=== PATIENT | male | born 1980 | race Caucasian/White ===

== ENCOUNTER 2020-10-16 10:39 | Inpatient (IN) | payer MEDICAID, SELFPAY ==
[~2020-10-16] VITALS: Ht 175.3 cm; Wt 146.6 kg
[2020-10-16 11:04] VITALS: BP 133/80
--- NOTE | 2020-10-16 11:11 | NUR ---
PT AMBULATED TO BED 1
--- NOTE | 2020-10-16 11:11 | NUR ---
PT MOVED TO BED 6
[2020-10-16] MEDS ORDERED: NACL 0.9% 1,000 ML IV SCH (11:20)
--- NOTE | 2020-10-16 11:36 | NUR ---
PSYCH COORDINATOR AT BEDSIDE
--- NOTE | 2020-10-16 11:40 | NUR ---
40/M PRESENTS TO ED WITH C/O ABSCESS TO GROIN AREA X1 WEEK. PATIENT STATES FOR TWO DAYS ABSCESS HAS BEGAN TO DRAIN, REPORTS 9/10 SHARP PAIN THAT WORSENS WITH MOVEMENT. DENIES TAKING ANYTHING AT HOME, STATES HE HAS APPLIED "ANTIBIOTIC OINTMENT." PATIENT ALSO HAS HX OF DM, STATES HE HAS NOT CHECKED SUGAR IN "MONTHS" STATING NO ACCESS TO ACCUCHECK DEVICE, ACCUCHECK UPON ARRIVAL TOO HIGH TO READ, DR. PARTIDA MADE AWARE. PATIENT NOT PRESENTING WITH HYPERGLYCEMIA SYMPTOMS, DENIES CHEST PAIN, SOB, FEVER OR CHILLS. DENIES DIZZINESS, EXCESSIVE THIRST OR URINATION.
[2020-10-16 12:08] LABS: BASOPHILS # (AUTO) 0.1 K/uL (0.00-0.22); EOSINOPHILS # (AUTO) 0.3 K/uL (0-0.4); EOSINOPHILS % (AUTO) 2.8 % (0.0-4.0); HEMOGLOBIN 14.5 g/dL (12.0-18.0); LYMPHOCYTES # (AUTO) 1.9 K/uL (2.0-11.5); LYMPHOCYTES % (AUTO) 20.1 % (20.5-51.1); MEAN CORPUSCULAR HEMOGLOBIN 31 pg (27-31); MEAN CORPUSCULAR HGB CONC 35 g/dL (33-37); MEAN CORPUSCULAR VOLUME 89.3 fL (80-94); MONOCYTES # (AUTO) 0.7 K/uL (0.8-1.0); MONOCYTES % (AUTO) 7.2 % (1.7-9.3); NEUTROPHILS # (AUTO) 6.4 K/uL (1.8-7.7); NEUTROPHILS % (AUTO) 68.9 % (42.2-75.2); PLATELET COUNT (AUTO) 254 K/uL (140-450); RED CELL DISTRIBUTION WIDTH 13.8 % (11.6-13.7); WHITE BLOOD COUNT (AUTO) 9.2 K/uL (4.8-10.8)
[2020-10-16 12:21] LABS: ALBUMIN 2.9 g/dL (3.4-5.0); ANION GAP 10.6 (8-16); CARBON DIOXIDE 26.6 mmol/L (21-32); CREATININE 1.6 mg/dL (0.6-1.3); POTASSIUM 4.2 mmol/L (3.5-5.1); TOTAL BILIRUBIN 0.3 mg/dL (0.0-1.0)
[2020-10-16] MEDS ORDERED: INSULIN REGULAR, HUMAN 100 UNIT/ML VIAL IVP ONE (12:30)
[2020-10-16] MEDS ORDERED: cefTRIAXone 1,000 MG in DEXT 5% MINI-BAG PLUS 50 ML IV ONE (12:50)
[2020-10-16] MEDS ORDERED: cefTRIAXone 1,000 MG VIAL ONE (13:09)
[2020-10-16] MEDS ORDERED: ACETAMINOPHEN 325 MG TAB PO PRN (13:15)
[2020-10-16] MEDS ORDERED: INSULIN LISPRO SLIDING SCALE 100 UNITS/ML VIAL SUBQ PRN (13:15)
[2020-10-16] MEDS ORDERED: POTASSIUM CHLORIDE 10 MEQ TABER PO PRN (13:15)
[2020-10-16] MEDS ORDERED: ZOLPIDEM 5 MG TAB PO PRN (13:15)
[2020-10-16] MEDS ORDERED: DOCUSATE SODIUM 100 MG GELCAP PO PRN (13:15)
[2020-10-16] MEDS ORDERED: DEXTROSE 50% 50 ML SYR IVP PRN (13:15)
[2020-10-16] MEDS ORDERED: guaiFENesin DM 200/20 MG-10 ML 10 ML UDC PO PRN (13:15)
[2020-10-16] MEDS ORDERED: DEXT 5% /NACL 0.9% 1,000 ML IV SCH (13:15)
[2020-10-16] MEDS ORDERED: HYDROcodone/APAP 7.5/325 MG 1 TAB PO PRN (13:15)
[2020-10-16] MEDS ORDERED: ONDANSETRON 4 MG/2 ML VIAL IM/IVP PRN (13:15)
[2020-10-16] MEDS ORDERED: INSULIN LANTUS 100 UNITS/ML 10 ML VIAL SUBQ SCH (13:40)
[2020-10-16 13:53] LABS: PROTHROMBIN TIME 10.4 secs (10.8-13.4)
[2020-10-16 13:59] LABS: MAGNESIUM 1.5 mg/dL (1.8-2.4); PHOSPHORUS 4.2 mg/dL (2.5-4.9); THYROID STIMULATING HORMONE 1.7 uIU/mL (0.34-3.74)
--- NOTE | 2020-10-16 14:00 | NUR ---
BLOOD SUGAR RECHECKED, 525. DR. PARTIDA MADE AWARE.
--- NOTE | 2020-10-16 14:54 | NUR ---
TALKED TO MADE AWARE BS 460, SAID NO COVERAGE FOR NOW, JUST GIVE LANTUS ORDER
[2020-10-16] MEDS ORDERED: BLOOD GLUCOSE MONITORING 1 DEV DEV FS SCH (16:30)
--- NOTE | 2020-10-16 16:30 | NUR ---
PATIENT STATES UNABLE TO PROVIDE URINE AT THIS TIME.
--- NOTE | 2020-10-16 17:30 | NUR ---
BLOOD SUGAR RECHECKED 460
--- NOTE | 2020-10-16 17:43 | NUR ---
Patient will be admitted to care of Dr. Echeverria. Admited to Med/Surg. Will go to room 124A. Belongings list completed. Report to Surya.
--- NOTE | 2020-10-16 17:59 | NUR ---
PATIENT ROOM NUMBER CHANGED TO [id number]
[2020-10-16 18:02] VITALS: BP 125/81
[2020-10-16] MEDS ORDERED: LIDOCAINE MPF 1% 10 MG/ML VIAL INJ SCH (18:25)
--- NOTE | 2020-10-16 18:41 | NUR ---
DR. NAYLOR ROUNDING. REFUSED IND PROCEDURE. PATIENT STATED, WANTS TO GO HOME. DR. NAYLOR WILL DO PROCEDURE IN OUTPATIENT. DR. KOENIG PAGED.
--- NOTE | 2020-10-16 18:59 | NUR ---
DR. KOENIG CALLED BACK. WANTS PATIENT TO STAY OVERNIGHT. AWARE PATIENT WANTS TO LEAVE. PATIENT STATED GOING TO LEAVE AGAINST MEDICAL ADVICE. DR. KOENIG AWARE. PATIENT SIGNED PAPER AND IN CHART. IV REMOVED. WILL CONTINUE TO MONITOR.
--- NOTE | 2020-10-16 19:03 | NUR ---
PATIENT VERBALIZED UNDERSTANDING OF AMA. STATES HAS MEDICATION FOR HYPERGLYCEMIA AND WILL GET REFILLS. PATIENT ALSO STATED WILL DO PROCEDURE IN OUTPATIENT ON TUESDAY. PATIENT WALKED TO DOOR AND STATED WILL BE PICKED UP.
[2020-10-16 23:49] LABS: FREE T4 (FREE THYROXINE) 1.03 ng/dL (0.76-1.46)
[2020-10-17] MEDS ORDERED: PANTOPRAZOLE 40 MG TABEC PO SCH (09:00)
[2020-10-17 15:06] LABS: T4 (THYROXINE) 7.1 ug/dL (4.5-12.0)
--- NOTE | 2020-10-19 08:52 | NUR ---
LATE ENTRY-- ROCEPHIN D/C AT 1400.
== END 2020-10-16 19:15 | disposition left against medical advice (07) | DRG 501 ==
LOC: MED 10:39 → MMU 13:25 → MTU 17:52
PROVIDERS: ADMIT Family Medicine; ATTEND Family Medicine
DX: N49.2 Inflammatory disorders of scrotum (principal); N17.0 Acute kidney failure with tubular necrosis; E43 Unspecified severe protein-calorie malnutrition; E11.65 Type 2 diabetes mellitus with hyperglycemia; Z20.822 Contact with and (suspected) exposure to COVID-19; L02.214 Cutaneous abscess of groin; E66.01 Morbid (severe) obesity due to excess calories; E87.1 Hypo-osmolality and hyponatremia; I10 Essential (primary) hypertension; Z79.4 Long term (current) use of insulin; Z68.42 Body mass index [BMI] 45.0-49.9, adult
CPT/HCPCS: 36415; 71045; 80053; 82150; 82948; 83036; 83605; 83690; 83735; 83880; 84100; 84436; 84439; 84443; 84479; 84484; 85025; 85610; 85730; 87040; 87081; 96361; 96365; 96372; 96375; 99285; J0696; J1815; Q0092

== ENCOUNTER 2020-12-27 19:45 | Emergency (ER) | payer MEDICAID, OTHER, SELFPAY ==
[~2020-12-27] VITALS: Ht 175.3 cm; Wt 139.3 kg
[2020-12-27 20:09] VITALS: BP 162/93
--- NOTE | 2020-12-27 20:14 | NUR ---
PT BED #5 AMBULATORY
[2020-12-27] MEDS ORDERED: HYDROcodone/APAP 10/325 MG 1 TAB TAB PO ONE (20:25)
[2020-12-27] MEDS ORDERED: ONDANSETRON 4 MG ODT PO ONE (20:25)
[2020-12-27] MEDS ORDERED: LACTATED RINGERS 1,000 ML IV ONE ×2 (20:30)
[2020-12-27 21:02] LABS: BASOPHILS # (AUTO) 0.1 K/uL (0.00-0.22); BASOPHILS % (AUTO) 0.7 % (0.0-2.0); EOSINOPHILS # (AUTO) 0.1 K/uL (0-0.4); EOSINOPHILS % (AUTO) 0.7 % (0.0-4.0); HEMATOCRIT 37.1 % (36-52); HEMOGLOBIN 12.7 g/dL (12.0-18.0); LYMPHOCYTES # (AUTO) 1.3 K/uL (2.0-11.5); LYMPHOCYTES % (AUTO) 13.5 % (20.5-51.1); MEAN CORPUSCULAR HEMOGLOBIN 30 pg (27-31); MEAN CORPUSCULAR HGB CONC 34 g/dL (33-37); MEAN CORPUSCULAR VOLUME 88.1 fL (80-94); MONOCYTES # (AUTO) 0.7 K/uL (0.8-1.0); MONOCYTES % (AUTO) 7.7 % (1.7-9.3); NEUTROPHILS # (AUTO) 7.5 K/uL (1.8-7.7); NEUTROPHILS % (AUTO) 77.4 % (42.2-75.2); PLATELET COUNT (AUTO) 422 K/uL (140-450); RED BLOOD CELL COUNT(AUTO) 4.21 MIL/uL (4.20-6.10); RED CELL DISTRIBUTION WIDTH 13.4 % (11.6-13.7); WHITE BLOOD COUNT (AUTO) 9.7 K/uL (4.8-10.8)
--- NOTE | 2020-12-27 21:05 | NUR ---
PATIENT BIB SELF, STATES LEFT LEG ABSCESS IS CAUSING PAIN RATES 10. STATES HE HAS HAD ABCESS FOR MONTHS NOW AND GETS IT DRAINED WHEN IT CAUSES DISCOMFORT. DENIES ANY CHEST PAIN, SOB. HAS NAUSEA BUT NO VOMITING. PATIENT IN NO APPRARENT ACUTE DISTRESS. NO UNLABORED BREATHING NOTED. WILL CONTINUE TO MONITOR. PMH: DM, HTN,
[2020-12-27 21:16] LABS: ALBUMIN 2.2 g/dL (3.4-5.0); ANION GAP 12.5 (8-16); CARBON DIOXIDE 26.8 mmol/L (21-32); CREATININE 1.3 mg/dL (0.6-1.3); POTASSIUM 4.3 mmol/L (3.5-5.1); TOTAL BILIRUBIN 0.1 mg/dL (0.0-1.0)
[2020-12-27] MEDS ORDERED: LIDOCAINE 2% 1000 MG/50 ML VIAL INJ ONE ×2 (21:45→21:54)
[2020-12-27] MEDS ORDERED: HYDROmorphone PFS 2 MG/ML SYR IVP ONE (21:55)
--- NOTE | 2020-12-27 22:00 | NUR ---
PATIENT GIVEN DILAUDID PRIOR TO PROCEDURE. LR BOLUS RUNNING, 2 LITERS TOTAL. PATIENT IN STABLE CONDITION. NO ACUTE DISTRESS NOTED.
--- NOTE | 2020-12-27 22:15 | NUR ---
ED MD IN THE ROOM DOING DRAINAGE PROCEDURE FOR LEFT LEG ABSCESS. PATIENT IN STABLE CONDITION, VSS.
[2020-12-27] MEDS ORDERED: SULFAMETH/TRIMETH DS 800/160MG 1 TAB PO ONE (22:25)
[2020-12-27] MEDS ORDERED: SULF-59 PO (22:29)
[2020-12-27] MEDS ORDERED: BACITRACIN OINT 500 UNITS/GM PKT TP ONE (22:35)
[2020-12-27] MEDS ORDERED: BACO TP (22:35)
[2020-12-27] MEDS ORDERED: INSULIN REGULAR, HUMAN 100 UNIT/ML VIAL IVP ONE (22:55)
--- NOTE | 2020-12-27 23:10 | NUR ---
ACCUCHECK 488, 6 UNTIS HUMULIN R ADMINISTERED PER ED MD ORDERS. PATIENT IN STABLE CONDITION. NO SIGNS OF ACUTE DISTRESS. WILL CONTINUE TO MONITOR.
[2020-12-27 23:40] VITALS: BP 135/85
--- NOTE | 2020-12-27 23:40 | NUR ---
Patient discharged with v/s stable. Written and verbal after care instructions given and explained. Patient alert, oriented and verbalized understanding of instructions. Ambulatory with steady gait. All questions addressed prior to discharge. ID band removed. Patient advised to follow up with PMD. Rx of SULFAMETHOXAZOLE given. Patient educated on indication of medication including possible reaction and side effects. Opportunity to ask questions provided and answered.
--- NOTE | 2020-12-30 14:34 | NUR ---
LATE ENTRY0 LR IV FLUIDS DISCONTINUED AT 2340.
--- NOTE | 2020-12-30 14:34 | NUR ---
LATE ENTRY- LR IV FLUIDS DISCONTINUED AT 2340 FOR BOTH IV BAGS.
== END 2020-12-27 23:40 | disposition home or self-care (01) ==
LOC: MED 19:45
DX: L02.416 Cutaneous abscess of left lower limb (principal); E11.65 Type 2 diabetes mellitus with hyperglycemia; I10 Essential (primary) hypertension; Z98.890 Other specified postprocedural states; Z79.2 Long term (current) use of antibiotics
CPT/HCPCS: 10060; 36415; 80053; 82948; 85025; 96361; 96374; 96375; 99284; J1170; J1815; J2001; Q0162

== ENCOUNTER 2021-10-25 13:00 | Emergency (ER) | payer MEDICAID, OTHER ==
[~2021-10-25] VITALS: Ht 175.3 cm; Wt 138.8 kg
[~2021-10-25 13:00] MED LIST: BACO TP; SULF-59 PO
[2021-10-25 13:07] VITALS: BP 170/126
--- NOTE | 2021-10-25 13:38 | NUR ---
41 Y/O MALE BIB SELF W/ MULTIPLE COMPLAINTS, C/O HEADACHE X3 MONTHS WITH BLURRY VISION, CONSTIPATION X3 DAYS. TOOK MIRALAX WITH NO EFFECT. SEEN AT CLINIC YESTERDAY RX MEDS FOR HTN PMH: HTN, DM, EDEMA NKA
--- NOTE | 2021-10-25 14:16 | NUR ---
DR PARTIDA AT BEDSIDE FOR EVAL
[2021-10-25] MEDS ORDERED: ACET-8386 PO (14:39)
[2021-10-25] MEDS ORDERED: MAGN296S48 PO (14:39)
[2021-10-25] MEDS ORDERED: IBUP-2213 PO (14:39)
--- NOTE | 2021-10-25 14:39 | NUR ---
PT WC ASSISTED TO CT
--- NOTE | 2021-10-25 14:55 | NUR ---
PT BROUGHT BACK FROM CT VIA WHEELCHAIR
[2021-10-25] MEDS ORDERED: OMEP40EC23 PO (15:20)
--- NOTE | 2021-10-25 15:21 | NUR ---
PER DR PARTIDA, BS IS OK TO DISCHARGE
[2021-10-25 15:46] VITALS: BP 152/74
--- NOTE | 2021-10-25 15:47 | NUR ---
Patient discharged with v/s stable. Written and verbal after care instructions given and explained. Patient alert, oriented and verbalized understanding of instructions. Ambulatory with steady gait. All questions addressed prior to discharge. ID band removed. Patient advised to follow up with PMD. Rx of NORCO 5-325, OMEPRAZOLE, IBUPROFEN, CITROMA given. Patient educated on indication of medication including possible reaction and side effects. Opportunity to ask questions provided and answered.
== END 2021-10-25 15:46 | disposition home or self-care (01) ==
LOC: MED 13:00
DX: K59.00 Constipation, unspecified (principal); I10 Essential (primary) hypertension; E11.9 Type 2 diabetes mellitus without complications; Z79.4 Long term (current) use of insulin; Z79.899 Other long term (current) drug therapy
CPT/HCPCS: 70450; 99284

== ENCOUNTER 2022-03-31 11:47 | Emergency (ER) | payer MEDICAID ==
[~2022-03-31] VITALS: Ht 175.3 cm; Wt 99.8 kg
[~2022-03-31 11:47] MED LIST changes: +ACET-8905 PO; +IBUP-2213 PO; +MAGN296S48 PO; +OMEP40EC23 PO
[2022-03-31 12:15] VITALS: BP 158/101
[2022-03-31] MEDS ORDERED: ALBU0.0912 INH (15:36)
[2022-03-31] MEDS ORDERED: BENZ200C4 PO (15:36)
[2022-03-31] MEDS ORDERED: IBUP-2213 PO (15:36)
[2022-03-31 15:45] VITALS: BP 136/89
--- NOTE | 2022-03-31 15:46 | NUR ---
PATIENT PRESENTS TO ED WITH REQUEST FOR MEDICAL EVALUATION . DENIES N/V/D; SKIN IS PINK/WARM/DRY; AAOX4 WITH EVEN AND STEADY GAIT; LUNGS CLEAR BL; HR EVEN AND REGULAR; PT DENIES ANY FEVER, CP, SOB, OR COUGH AT THIS TIME; PATIENT STATES PAIN OF 0/10 AT THIS TIME; VSS;
--- NOTE | 2022-03-31 15:48 | NUR ---
Patient discharged with v/s stable. Written and verbal after care instructions given and explained. Patient verbalized understanding. Ambulatory with steady gait. All questions addressed prior to discharge. Advised to follow up with PMD.
== END 2022-03-31 15:48 | disposition home or self-care (01) ==
LOC: MED 11:47
DX: J40 Bronchitis, not specified as acute or chronic (principal); J06.9 Acute upper respiratory infection, unspecified; I10 Essential (primary) hypertension; E78.00 Pure hypercholesterolemia, unspecified; E11.40 Type 2 diabetes mellitus with diabetic neuropathy, unspecified; Z79.899 Other long term (current) drug therapy; Z79.1 Long term (current) use of non-steroidal anti-inflammatories (NSAID); Z79.891 Long term (current) use of opiate analgesic; Z79.2 Long term (current) use of antibiotics
CPT/HCPCS: 99282; 99283